=== PATIENT | female | born 1950 | race Caucasian/White ===

== ENCOUNTER 2022-05-22 23:22 | Outpatient (CLI) | payer MEDICARE, SELFPAY | END 2022-05-22 23:23 | disposition home or self-care (01) | LOC: AMB 05-29 17:16 | PROVIDERS: PCP Family Medicine; Visit Provider Emergency Medicine Emergency Medical Services | DX: R53.1 Weakness (principal) ==

== ENCOUNTER 2022-08-29 21:42 | Outpatient (CLI) | payer MEDICARE, SELFPAY | END 2022-08-29 21:43 | disposition home or self-care (01) | LOC: AMB 10-14 11:37 | PROVIDERS: PCP Family Medicine; Visit Provider Emergency Medicine Emergency Medical Services | DX: R53.1 Weakness (principal) | CPT/HCPCS: A0998 ==

== ENCOUNTER 2022-12-22 19:53 | Emergency (ER) | payer MEDICARE, SELFPAY ==
[2022-12-22 20:00] VITALS: BP 160/85; PULSE 109; RESP 18; TEMP 36.3; O2SAT 96
--- NOTE | 2022-12-22 20:34 | ED.GENADULT ---
[facility] - General Adult General Date Seen: 12/22/22 Chief complaint: Chest Pain Stated complaint: recent shunt procedure, stomach feels hard Time Seen by Provider: 12/22/22 20:02 Source: patient Mode of arrival: ambulatory Limitations: no limitations History of Present Illness HPI narrative: Patient is a 72-year-old woman who had a VERMIN EXTERMINATOR shunt placed about a week ago at [facility] secondary to normal pressure hydrocephalus. Procedure went smoothly and she had felt well until yesterday when she developed some upper abdominal discomfort along with a sensation that her upper abdomen felt ?hard to the touch. She says that she called the clinic today and was advised to come in. She denies any fevers, she has not had nausea or vomiting, she has had a chronic headache which is unchanged. No visual complaints. Pain is slightly worse today than it was yesterday, otherwise symptoms are unchanged. She has incisions on her scalp and on her abdomen both of which have appeared normal. No drainage or redness. She has been eating and drinking without difficulty. She does not have chest pain as is stated under the chief complaint. No shortness of breath or cough. Review of Systems Status of ROS: Reports: 10 or more systems reviewed and unremarkable except as noted in History and below Exam Narrative: Exam Narrative: Vital signs as noted above. In general, an alert, nontoxic woman. She looks comfortable. Head: Normocephalic, atraumatic. Scalp incision shows no erythema, warmth, drainage. Eyes: Pupils are equal reactive. Extraocular movements are full. Conjunctivae are normal. ENT: Mucous membranes are moist. Throat is normal. Neck: Supple without lymphadenopathy. Nontender over the shunt. Heart: Regular rate and rhythm. No murmur or rub. Lungs: Clear bilaterally. No increased work of breathing, crackles or wheezes. Abdomen: Incision looks good. I do not feel any firmness over the upper abdomen. She has mild diffuse tenderness without rebound guarding or rigidity. Extremities: Well perfused. No edema. No calf tenderness. Pulses intact. Neurologic: Patient is alert and oriented to person and place. Speech is fluent. Face is symmetric. Moves all extremities equally. Affect: Normal. Skin: Warm and dry. Well perfused. Const: Vital Signs, click to edit/add: Vital Signs - 24 hr 12/22/22 20:00 Temperature 97.3 F L Pulse Rate [Left P ulse Oximeter] 109 H Respiratory Rate 18 Blood Pressure [Ri ght Upper Arm] 160/85 H Pulse Oximetry 96 Oxygen Delivery Me thod Room Air Documenting provider has reviewed patient's vital signs: yes Course Course Hospital Course: I did attempt to look at the patient's abdomen with the bedside ultrasound. On the splenorenal views, I do not see any evidence of ascites. 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 It may be that the shunt is affecting my visibility in that area. In any case, I was not able to get a standard view. Labs are overall reassuring. Her white blood cell count is 9, hemoglobin of 14.2, platelets normal. Metabolic panel is normal, LFTs normal. CRP minimally elevated at 2.6. Lipase was 52, lactate 1.1. Considered diagnoses of abdominal injury due to VERMIN EXTERMINATOR shunt placement, small bowel obstruction, infection. Labs are normal which I think makes infection somewhat less likely. I did recommend CT scan just to evaluate for any evidence of intra-abdominal abnormalities. Patient declined that. I recommended that I speak with the on-call physician for neurosurgical associates prior to making any further decisions. I did have them paged out, but she became impatient and said she did not want to wait any further. I did discuss with her the possible complications of abdominal injuries or infection. She has an appointment scheduled next week and she does plan to keep that. She had expressed some frustration that they wanted her to be seen today rather than going in next week, and so I think that is part of the reason she is somewhat left patient tonight. In any case, she was not willing to stay any further and she did leave against medical advice. I have not yet heard back from the neurosurgeon. I was finally able to talk to the neurosurgeon a couple hours after she left. Had a little difficulty getting in touch with Dr. Bain, but ultimately did just review with him that she had been here and lab findings. They will follow-up with her. Vital Signs Vital signs: Initial Vital Signs Temperature 97.3 F L 12/22/22 20:00 Temperature Source Temporal Artery Scan 12/22/22 20:00 Pulse Rate 109 H 12/22/22 20:00 Pulse Rhythm 12/22/22 20:00 Respiratory Rate 18 12/22/22 20:00 Blood Pressure 160/85 H 12/22/22 20:00 Blood Pressure Mean 110 12/22/22 20:00 Blood Pressure Position Sitting 12/22/22 20:00 Pulse Oximetry 96 12/22/22 20:00 Oxygen Delivery Method 12/22/22 20:00 Vital Signs Temperature 97.3 F L 12/22/22 20:00 Pulse Rate 109 H 12/22/22 20:00 Respiratory Rate 18 12/22/22 20:00 Blood Pressure 160/85 H 12/22/22 20:00 Pulse Oximetry 96 12/22/22 20:00 Oxygen Delivery Method 12/22/22 20:00 Temperature 97.3 F L 12/22/22 20:00 Pulse Rate 109 H 12/22/22 20:00 Respiratory Rate 18 12/22/22 20:00 Blood Pressure 160/85 H 12/22/22 20:00 Pulse Oximetry 96 12/22/22 20:00 Oxygen Delivery Method 12/22/22 20:00 Medical Decision Making Lab Data Labs: Lab Results 12/22/22 12/22/22 12/22/22 Range/Units 20:40 20:40 20:40 WBC 9.14 (4.50-11.00) K/uL RBC 4.37 (4.00-5.20) m/uL Hgb 14.2 (12.0-16.0) gm/dL Hct 42.6 (33.0-51.0) % MCV 98 (80-100) fL MCH 33 (26-34) pg MCHC 33 (32-36) gm/dL RDW Coeff of Harvinder 12.6 (11.5-15.5) % Plt Count 271 (140-440) K/uL Neut % (Auto) 65.0 (42.0-72.0) % Lymph % (Auto) 23.9 (20-44) % Person % (Auto) 7.8 (0.0-11.0) % Eos % (Auto) 2.7 (0.0-7.0) % Baso % (Auto) 0.3 (0.0-3.0) % Neut # (Auto) 5.94 (1.7-7.0) K/uL Lymph # (Auto) 2.18 (0.90-2.90) K/uL Person # (Auto) 0.70 (0.00-0.90) K/UL Eos # (Auto) 0.25 (0.00-0.50) K/uL Baso # (Auto) 0.03 (0.00-0.30) K/uL Sodium 138 (135-149) mmol/L Potassium 3.9 (3.6-5.1) mmol/L Chloride 107 (96-114) mmol/L Carbon Dioxide 24 (20-32) mmol/L BUN 11 (7-30) mg/dL Creatinine 0.8 (0.5-1.5) mg/dL Estimated GFR 79 ml/min Glucose 120 H (60-115) mg/dL Lactate (0.5-1.9) mmol/L Calcium 8.8 (8.4-10.6) mg/dL Total Bilirubin 0.5 (0.1-1.5) mg/dL Direct Bilirubin 0.2 (0.0-0.5) mg/dL AST 20 (12-35) U/L ALT 21 (4-35) U/L Alkaline Phosphatase 74 (40-150) U/L C-Reactive Protein 2.6 H (0.5-1.0) mg/dL Total Protein 7.6 (6.0-8.3) g/dL Albumin 4.0 (3.3-5.0) g/dL Lipase 52 (23-300) U/L 12/22/22 Range/Units 20:40 WBC (4.50-11.00) K/uL RBC (4.00-5.20) m/uL Hgb (12.0-16.0) gm/dL Hct (33.0-51.0) % MCV (80-100) fL MCH (26-34) pg MCHC (32-36) gm/dL RDW Coeff of Harvinder (11.5-15.5) % Plt Count (140-440) K/uL Neut % (Auto) (42.0-72.0) % Lymph % (Auto) (20-44) % Person % (Auto) (0.0-11.0) % Eos % (Auto) (0.0-7.0) % Baso % (Auto) (0.0-3.0) % Neut # (Auto) (1.7-7.0) K/uL Lymph # (Auto) (0.90-2.90) K/uL Person # (Auto) (0.00-0.90) K/UL Eos # (Auto) (0.00-0.50) K/uL Baso # (Auto) (0.00-0.30) K/uL Sodium (135-149) mmol/L Potassium (3.6-5.1) mmol/L Chloride (96-114) mmol/L Carbon Dioxide (20-32) mmol/L BUN (7-30) mg/dL Creatinine (0.5-1.5) mg/dL Estimated GFR ml/min Glucose (60-115) mg/dL Lactate 1.1 (0.5-1.9) mmol/L Calcium (8.4-10.6) mg/dL Total Bilirubin (0.1-1.5) mg/dL Direct Bilirubin (0.0-0.5) mg/dL AST (12-35) U/L ALT (4-35) U/L Alkaline Phosphatase (40-150) U/L C-Reactive Protein (0.5-1.0) mg/dL Total Protein (6.0-8.3) g/dL Albumin (3.3-5.0) g/dL Lipase (23-300) U/L Discharge Plan Discharge Clinical Impression: Abdominal pain Patient Disposition: Left Against Medical Advice Condition: Stable Instructions: Abdominal Pain (ED) Follow Up/Referrals: Travis Hoskins MD [Primary Care Provider] - Stand Alone Forms: [facility] Info Instructions
[2022-12-22 20:51] LABS: Lactate* 1.1 mmol/L (0.5-1.9)
[2022-12-22 20:53] LABS: Basophils Absolute Auto 0.03 K/uL (0.00-0.30); Basophils Percent Auto 0.3 % (0.0-3.0); Eosinophils Absolute Auto 0.25 K/uL (0.00-0.50); Eosinophils Percent Auto 2.7 % (0.0-7.0); Hematocrit 42.6 % (33.0-51.0); Hemoglobin* 14.2 gm/dL (12.0-16.0); Immature Granulocytes Abs Auto 0.03 K/uL (0.00-0.30); Immature Granulocytes Pct Auto 0.3 %; Lymphocytes Absolute Auto 2.18 K/uL (0.90-2.90); Lymphocytes Percent Auto 23.9 % (20-44); Mean Corpuscular HGB Conc 33 gm/dL (32-36); Mean Corpuscular Hemoglobin 33 pg (26-34); Mean Corpuscular Volume 98 fL (80-100); Monocytes Percent Auto 7.8 % (0.0-11.0); Neutrophils Absolute Auto 5.94 K/uL (1.7-7.0); Platelet Count* 271 K/uL (140-440); RDW Coefficient of Variation % 12.6 % (11.5-15.5); Red Blood Count 4.37 m/uL (4.00-5.20); White Blood Count* 9.14 K/uL (4.50-11.00)
[2022-12-22 20:56] LABS: Slide Review Reflex No
[2022-12-22 21:06] LABS: Chloride* 107 mmol/L (96-114); Potassium* 3.9 mmol/L (3.6-5.1); Sodium* 138 mmol/L (135-149)
[2022-12-22 21:09] LABS: Creatinine* 0.8 mg/dL (0.5-1.5); Estimated Glomerular Filt Rate 79 ml/min
[2022-12-22 21:10] LABS: Blood Urea Nitrogen* 11 mg/dL (7-30); Calcium* 8.8 mg/dL (8.4-10.6); Carbon Dioxide* 24 mmol/L (20-32); Glucose* 120 mg/dL (60-115)
[2022-12-22 21:12] LABS: C Reactive Protein* 2.6 mg/dL (0.5-1.0)
[2022-12-22 21:20] LABS: Aspartate Amino Transferase* 20 U/L (12-35); Bilirubin Direct* 0.2 mg/dL (0.0-0.5); Bilirubin Total* 0.5 mg/dL (0.1-1.5); Total Protein* 7.6 g/dL (6.0-8.3)
[2022-12-22 21:21] LABS: Alanine Aminotransferase* 21 U/L (4-35); Alkaline Phosphatase* 74 U/L (40-150); Lipase* 52 U/L (23-300)
--- NOTE | 2022-12-22 21:50 | ED.NURSE ---
Patient was rounded on. Informed of plan for CT to better visualize abdomen. Patient feels this is not necesary. These concern brought to MD, will hold CT and call surgical provider for guidance. Patient updated and ok with this plan.
--- NOTE | 2022-12-22 22:26 | ED.NURSE ---
Patient placed call light on x2 to state she wanted to leave. Attempted to educate patient on need to stay to fully investigate health concern. Son brought in from waiting room to provide presence.
--- NOTE | 2022-12-22 22:27 | ED.NURSE ---
Patient adamant on leaving. RN explained desire of provider to wait for call back and or discharge recommendations to be completed. Patient refuses and opted in signing AMA.
== END 2022-12-22 22:20 | disposition left against medical advice (07) ==
PROVIDERS: Emergency Provider Emergency Medicine; PCP Family Medicine
DX: R10.10 Upper abdominal pain, unspecified (principal); Z53.29 Procedure and treatment not carried out because of patient's decision for other reasons
CPT/HCPCS: 36415; 80048; 80076; 83605; 83690; 85025; 86140; 99283; 99284

== ENCOUNTER 2023-05-29 13:15 | Outpatient (CLI) | payer MEDICARE, SELFPAY ==
--- NOTE | 2023-05-29 08:40 | P.ANHP_ITS ---
HPI - Pre-Anesthesia History of Present Illness Time Seen by Provider: 13:41 Date Seen: 05/29/23 Date of service: 05/29/23 Source: patient and old records reviewed Review of Systems Status of ROS Reports: 6 or more systems reviewed and unremarkable except as noted in History and below Const Reports: change in sleep pattern GI Reports: abdominal pain and constipation PFSH PFS Medical History (Updated 05/29/23 @ 13:41 by Oscar Schuler MD) Insomnia ?G47.00 - Insomnia, unspecified (ICD-10) NPH (normal pressure hydrocephalus) ?G91.2 - (Idiopathic) normal pressure hydrocephalus (ICD-10) Abdominal pain ?R10.9 - Unspecified abdominal pain (ICD-10) Surgical History (Updated 05/29/23 @ 13:41 by Oscar Schuler MD) FIRE POT OPERATOR (ventriculoperitoneal) shunt status ?Z98.2 - Presence of cerebrospinal fluid drainage device (ICD-10) Exam Const Documenting provider has reviewed patient's vital signs: yes Common normals: no apparent distress, oriented x3, healthy appearing, alert and well nourished General appearance: cooperative and comfortable Orientation/consciousness: Yes awake HENMT Common normals: normocephalic Head and scalp: normocephalic Neck & C-Spine Common normals: full ROM Chest Chest: symmetrical chest wall rise Resp Common normals: normal respiratory effort, no retractions, no use of accessory muscles and clear to auscultation bilaterally Auscultation: clear to auscultation bilaterally Cardio Common normals: regular rate, regular rhythm, S1 normal heart sound, S2 normal heart sound and no murmurs Rate: regular rate Rhythm: regular rhythm Heart sounds: S1 normal and S2 normal Neuro Common normals: oriented x3 Sensorium/orientation: awake and alert Assessment and Plan Assessment and plan (1) Abdominal pain: Status: Inactive Plan ok to proceed with sedation for endoscopy
--- NOTE | 2023-05-29 08:40 | W.ANESCHARGE ---
Anesthesia Charges Start Date/Time Anesthesia Start Date: 05/29/23 Anesthesia Start Time: 14:17 Stop Date/Time Anesthesia Stop Date: 05/29/23 Anesthesia Stop Time: 15:00 Summary Extremes of Age - Over 70 or under 1: MDA
--- NOTE | 2023-05-29 15:00 | W.ANESCHARGE ---
Anesthesia Charges Start Date/Time Anesthesia Start Date: 05/29/23 Anesthesia Start Time: 14:17 Stop Date/Time Anesthesia Stop Date: 05/29/23 Anesthesia Stop Time: 15:00 Summary Extremes of Age - Over 70 or under 1: RECREATIONAL DIRECTOR
== END 2023-05-29 13:16 | disposition home or self-care (01) ==
LOC: OP CLINIC 13:17
PROVIDERS: PCP Family Medicine; Visit Provider Internal Medicine Gastroenterology
DX: R10.13 Epigastric pain (principal); K22.89 Other specified disease of esophagus; R19.8 Other specified symptoms and signs involving the digestive system and abdomen; Z86.010 Personal history of colon polyps
CPT/HCPCS: 43239; 45378; 813; 88305; 88342; 99100; J2405; J2704; J3490

== ENCOUNTER 2024-02-26 09:33 | Emergency (ER) | payer MEDICARE, SELFPAY ==
[2024-02-26 09:44] VITALS: BP 152/82; PULSE 75; RESP 18; TEMP 36.8; O2SAT 95; BMI 33.9
--- NOTE | 2024-02-26 10:51 | ED_ITS ---
HPI - General Adult General Date Seen: 02/26/24 Chief complaint: Extremity Pain/Injury, Upper Stated complaint: needs ring cut off Time Seen by Provider: 02/26/24 10:23 Source: patient Mode of arrival: ambulatory Limitations: no limitations History of Present Illness HPI narrative: Patient is 73-year-old female presenting due to her waiting room being stuck on her left 4th finger. She states she want to try on her wedding ring again and put on yesterday. It went not easy both she was unable to get off. They tried the string method. She has noticed the finger keep down swelling so she came to the emergency department to have it removed. No in the injuries. Denies pain at this time. They tried to get off with the string without success. Related Data Home Medications Medication Instructions Recorded Confirmed bupropion HCl 150 mg tablet,12 hr 150 mg PO BID 02/26/24 02/26/24 sustained-release trazodone 50 mg tablet 50 mg PO QPM 02/26/24 02/26/24 Allergies Allergy/AdvReac Type Severity Reaction Status Date / Time animal dander Allergy Verified 02/26/24 09:49 Review of Systems Narrative: Pertinent systems reviewed and were negative unless stated HPI PFSH PFSH Medical History Insomnia ?G47.00 - Insomnia, unspecified (ICD-10) NPH (normal pressure hydrocephalus) ?G91.2 - (Idiopathic) normal pressure hydrocephalus (ICD-10) Abdominal pain ?R10.9 - Unspecified abdominal pain (ICD-10) Surgical History MANAGER MANAGEMENT (ventriculoperitoneal) shunt status ?Z98.2 - Presence of cerebrospinal fluid drainage device (ICD-10) Exam Narrative: Exam Narrative: Const: Well-nourished, Well-developed, in no distress Eyes: PERRL, no conjunctival injection, and symmetrical lids HENT: Atraumatic external nose and ears. Moist mucous membranes. Extremities: Ring stuck on patient's left 4th finger just past the PIP with swelling noted MSK:Extremities w/o deformity, Normal Active ROM Skin: Warm, Dry. No rashes or lesions. Neuro: Normal Muscle tone, No focal neurological deficits. Psych: Awake, Alert, & Oriented x3. Appropriate mood and affect. Const: Vital Signs, click to edit/add: Vital Signs - 24 hr 02/26/24 09:44 Temperature 98.2 F Pulse Rate [Right] 75 Respiratory Rate 18 Blood Pressure [Ri ght Upper Arm] 152/82 H Pulse Oximetry 95 Oxygen Delivery Me thod Room Air Course Vital Signs Vital signs: Initial Vital Signs Temperature 98.2 F 02/26/24 09:44 Temperature Source Temporal Artery Scan 02/26/24 09:44 Pulse Rate 75 02/26/24 09:44 Respiratory Rate 18 02/26/24 09:44 Blood Pressure 152/82 H 02/26/24 09:44 Blood Pressure Mean 105 02/26/24 09:44 Blood Pressure Position Sitting 02/26/24 09:44 Pulse Oximetry 95 02/26/24 09:44 Oxygen Delivery Method Room Air 02/26/24 09:44 Vital Signs Temperature 98.2 F 02/26/24 09:44 Pulse Rate 75 02/26/24 09:44 Respiratory Rate 18 02/26/24 09:44 Blood Pressure 152/82 H 02/26/24 09:44 Pulse Oximetry 95 02/26/24 09:44 Oxygen Delivery Method Room Air 02/26/24 09:44 Temperature 98.2 F 02/26/24 09:44 Pulse Rate 75 02/26/24 09:44 Respiratory Rate 18 02/26/24 09:44 Blood Pressure 152/82 H 02/26/24 09:44 Pulse Oximetry 95 02/26/24 09:44 Oxygen Delivery Method Room Air 02/26/24 09:44 Medical Decision Making MDM Narrative Medical decision making narrative: Finger does not look necrotic at this time but does appear swelling. I tried to get the ring off using a tourniquet without success. I was then able to cut the ring off. She tolerated the procedure well. Will be discharged home Discharge Plan Discharge Clinical Impression: Finger swelling Patient Disposition: Home, Self-Care Condition: Stable Additional Instructions: The swelling of your finger should slowly improve. Return to emergency depar tment for any new or worsening symptoms Prescriptions: No Action bupropion HCl 150 mg tablet sustained-release 12 hr 150 mg PO BID trazodone 50 mg tablet 50 mg PO QPM Follow Up/Referrals: Travis Hoskins MD [Primary Care Provider] - Stand Alone [facility] Info Instructions
== END 2024-02-26 11:09 | disposition home or self-care (01) ==
PROVIDERS: Emergency Provider Student in an Organized Health Care Education/Training Program; PCP Family Medicine
DX: S60.455A Superficial foreign body of left ring finger, initial encounter (principal); W49.04XA Ring or other jewelry causing external constriction, initial encounter
CPT/HCPCS: 99282; 99283